=== PATIENT | female | born 1995 | race Caucasian/White ===

== ENCOUNTER → 2017-03-16 | Outpatient (CLI) | payer OTHER ==
--- NOTE | 2017-03-16 15:11 | Diagnostic Imaging Report ---
Transabdominal and transvaginal pelvic ultrasound. INDICATION: Irregular menses. FINDINGS: The uterus is 5.9 x 3.4 x 2.6 cm in size. The endometrial stripe is 3 mm in thickness. The myometrium is fairly homogeneous with no focal lesion identified. The ovaries are not seen, probably obscured by bowel gas. IMPRESSION: The uterus appears unremarkable. The ovaries are not seen. Dictated by: Dictated on workstation # [id number]
== END ==
LOC: RAD 14:19 → EDBD 14:30
PROVIDERS: ATTEND Family Medicine
DX: N92.6 Irregular menstruation, unspecified (principal)
CPT/HCPCS: 76830; 76856